=== PATIENT | female | born 2000 | race Caucasian/White ===

== ENCOUNTER 2018-09-01 20:54 | Emergency (ER) | payer MEDICAID ==
[~2018-09-01] VITALS: Ht 157.5 cm; Wt 70.8 kg
[2018-09-01 21:03] VITALS: BP 136/78
--- NOTE | 2018-09-01 21:06 | NUR ---
PT TAKEN TO BED 7
--- NOTE | 2018-09-01 21:06 | NUR ---
Dr. Arroyo evaluating patient at bedside.
[2018-09-01] MEDS ORDERED: KETOROLAC 30 MG/ML VIAL IM ONE (21:10)
--- NOTE | 2018-09-01 21:15 | NUR ---
18/F PRESENTS TO ED, C/O NONPRODUCTIVE COUGH, CONGESTION, RHINORRHEA, X10 HRS. PT ALSO REPORTS MILD PERIORBITAL SWELLING WITH EYE REDNESS AND BODY ACHES. SKIN MILDLY FLUSHED, WARM, AND DRY. PT DENIES FEVER, N/V. AOX4, GCS 15, RR EVEN AND UNLABORED. LUNG SOUNDS CLEAR BL. DENIES MED HX
[2018-09-01] MEDS ORDERED: predniSONE 20 MG TAB PO ONE (22:05)
[2018-09-01 22:35] VITALS: BP 113/72
--- NOTE | 2018-09-01 22:35 | NUR ---
Patient discharged with v/s stable. Written and verbal after care instructions given and explained. Patient alert, oriented and verbalized understanding of instructions. Ambulatory with steady gait. All questions addressed prior to discharge. ID band removed. Patient advised to follow up with PMD. Rx of DIPHENHYDRAMINE, PREDNISONE given. Patient educated on indication of medication including possible reaction and side effects. Opportunity to ask questions provided and answered.
== END 2018-09-01 22:35 | disposition home or self-care (01) ==
LOC: MED 20:54
DX: J30.9 Allergic rhinitis, unspecified (principal); H10.9 Unspecified conjunctivitis
CPT/HCPCS: 36415; 87804; 96372; 99283; J1885; J7512; Q0163

== ENCOUNTER 2018-10-22 19:53 | Emergency (ER) | payer SELFPAY ==
[~2018-10-22] VITALS: Ht 162.6 cm; Wt 65.8 kg
[2018-10-22 20:00] VITALS: BP 128/79
--- NOTE | 2018-10-22 20:03 | NUR ---
PT AMBULATORY TO BR THEN TO ER LOBBY W/ STEADY GAIT IN STABLE CONDITION.
[2018-10-22 20:50] LABS: BASOPHILS % (AUTO) 0.2 % (0.0-2.0); EOSINOPHILS # (AUTO) 0.1 K/uL (0-0.4); EOSINOPHILS % (AUTO) 1.2 % (0.0-4.0); HEMATOCRIT 40.9 % (36-48); HEMOGLOBIN 13.6 g/dL (12.0-16.0); LYMPHOCYTES # (AUTO) 1.3 K/uL (2.5-16.5); MEAN CORPUSCULAR HEMOGLOBIN 29 pg (27-31); MEAN CORPUSCULAR HGB CONC 33 g/dL (33-37); MEAN CORPUSCULAR VOLUME 87.3 fL (80-94); MONOCYTES # (AUTO) 0.6 K/uL (0.8-1.0); MONOCYTES % (AUTO) 8.8 % (1.7-9.3); NEUTROPHILS # (AUTO) 4.5 K/uL (1.8-7.7); NEUTROPHILS % (AUTO) 69.8 % (42.2-75.2); PLATELET COUNT (AUTO) 234 K/uL (140-450); RED BLOOD CELL COUNT(AUTO) 4.69 MIL/uL (4.20-5.40); RED CELL DISTRIBUTION WIDTH 14.4 % (11.6-13.7); WHITE BLOOD COUNT (AUTO) 6.5 K/uL (4.5-11.0)
[2018-10-22 20:55] LABS: APPEARANCE,URINE CLEAR (CLEAR); BILIRUBIN,URINE NEGATIVE (NEGATIVE); BLOOD, URINE NEGATIVE (NEGATIVE); COLOR,URINE YELLOW (YELLOW); LEUKOCYTE ESTERASE ,URINE NEGATIVE (NEGATIVE); NITRITE, URINE NEGATIVE (NEGATIVE); PH,URINE 6.5 (5.0-9.0); UGLUCOSE NEGATIVE (NEGATIVE)
[2018-10-22 21:02] LABS: ANION GAP 9.7 (8-16); CARBON DIOXIDE 29.5 mmol/L (21-32); CREATININE 0.7 mg/dL (0.6-1.3); POTASSIUM 4.2 mmol/L (3.5-5.1)
[2018-10-22 21:08] LABS: ALBUMIN 3.8 g/dL (3.4-5.0); TOTAL BILIRUBIN 0.4 mg/dL (0.0-1.0)
--- NOTE | 2018-10-22 21:24 | NUR ---
PT TO ED WITH C/O GENERALIZED LOWER ABD PAIN RADIATING TO BACK WITH N/V X 1 DAY. BOWEL SOUNDS ACTIVE. NO DISTENTION NOTED. PT DENIES ANY PAIN UPON PALPATION. PT PLACED INTO BED, PENDING MD ALEXIS.
[2018-10-22] MEDS ORDERED: KETOROLAC 30 MG/ML VIAL IM ONE (21:30)
[2018-10-22 22:40] VITALS: BP 118/74
== END 2018-10-22 22:40 | disposition home or self-care (01) ==
LOC: MED 19:53
DX: K59.00 Constipation, unspecified (principal); R11.2 Nausea with vomiting, unspecified; M54.5 Low back pain; L53.8 Other specified erythematous conditions
CPT/HCPCS: 36415; 74018; 80053; 81003; 81025; 83690; 85025; 96372; 99284; J1885; Q0092

== ENCOUNTER 2020-10-02 01:00 | Emergency (ER) | payer SELFPAY ==
[~2020-10-02] VITALS: Ht 154.9 cm; Wt 76.7 kg
[2020-10-02 01:08] VITALS: BP 116/80
--- NOTE | 2020-10-02 01:15 | NUR ---
PT W/C ASSISTED TO LOBBY TO A/W BED
--- NOTE | 2020-10-02 01:20 | NUR ---
SEE COMPLETE ASSESSMENT
--- NOTE | 2020-10-02 02:04 | NUR ---
AMBULATED TO ER BED 1
--- NOTE | 2020-10-02 02:13 | NUR ---
RAD AT BEDSIDE
[2020-10-02] MEDS ORDERED: HYDROcodone/APAP 5/325 MG 1 TAB TAB PO ONE (02:45)
[2020-10-02] MEDS ORDERED: ONDANSETRON 4 MG ODT PO ONE (02:45)
[2020-10-02] MEDS ORDERED: IBUP-2213 PO (02:54)
[2020-10-02] MEDS ORDERED: ACET-8386 PO (02:54)
--- NOTE | 2020-10-02 03:05 | NUR ---
KNEE IMMOBLIZER PLACED TO RT KNEE. +CMS.
--- NOTE | 2020-10-02 03:21 | NUR ---
Patient discharged with v/s stable. Written and verbal after care instructions given and explained. Patient alert, oriented and verbalized understanding of instructions. Ambulatory with steady gait. All questions addressed prior to discharge. ID band removed. Patient advised to follow up with PMD. Rx of MOTRIN AND NORCO given. Patient educated on indication of medication including possible reaction and side effects. Opportunity to ask questions provided and answered.
== END 2020-10-02 03:21 | disposition home or self-care (01) ==
LOC: MED 01:00
DX: M25.561 Pain in right knee (principal); M25.469 Effusion, unspecified knee; J45.909 Unspecified asthma, uncomplicated
CPT/HCPCS: 29505; 73562; 99283; Q0162